=== PATIENT | male | born 2000 | race Two or more races ===

== ENCOUNTER 2022-06-07 18:51 | Emergency (ER) | payer OTHER ==
[~2022-06-07] VITALS: Ht 198.1 cm; Wt 73.5 kg
[2022-06-07] MEDS ORDERED: AMOX-CLAV 875-1 EACH PO (19:44)
== END 2022-06-07 21:59 | disposition home or self-care (01) ==
LOC: ER 18:51
DX: S61.217A Laceration without foreign body of left little finger without damage to nail, initial encounter (principal); W26.0XXA Contact with knife, initial encounter; Y93.G3 Activity, cooking and baking; Y92.9 Unspecified place or not applicable; Y99.9 Unspecified external cause status